=== PATIENT | female | born 1965 | race Caucasian/White ===

== ENCOUNTER 2019-04-06 14:21 | Emergency (ER) | payer MEDICAID, OTHER ==
[~2019-04-06] VITALS: Ht 177.8 cm; Wt 68.0 kg
--- NOTE | 2019-04-06 15:14 | NUR ---
PT WAS EVALUATED BY DR DURBIN. PT WAS D/C'd TO HOME. D/C INSTRUCTIONS GIVEN TO THE PT.
[2019-04-06 15:15] VITALS: BP 135/76
== END 2019-04-06 15:16 | disposition home or self-care (01) ==
LOC: ER 14:21
DX: Z00.00 Encounter for general adult medical examination without abnormal findings (principal)
CPT/HCPCS: A4663

== ENCOUNTER 2019-08-05 17:52 | Emergency (ER) | payer OTHER ==
[~2019-08-05] VITALS: Ht 170.2 cm; Wt 76.7 kg
[2019-08-05] MEDS ORDERED: IBUPROFEN 800 MG TABLET PO ONE (18:15)
[2019-08-05] MEDS ORDERED: IBUPROFEN 800 MG TABLET ONE (18:27)
--- NOTE | 2019-08-05 18:33 | NUR ---
Dr Bellamy is at bedside for MSE.
--- NOTE | 2019-08-05 18:59 | NUR ---
Patient discharged to home in stable conditon. Written and verbal after care instructions given. to patient. Patient verbalizes understanding of instructions.
== END 2019-08-05 19:03 | disposition home or self-care (01) ==
LOC: ER 17:52
DX: S92.515A Nondisplaced fracture of proximal phalanx of left lesser toe(s), initial encounter for closed fracture (principal); W22.8XXA Striking against or struck by other objects, initial encounter; Y93.89 Activity, other specified; Y92.89 Other specified places as the place of occurrence of the external cause; Y99.8 Other external cause status
CPT/HCPCS: 73630; A4663

== ENCOUNTER 2019-12-02 11:15 | Emergency (ER) | payer MEDICAID, OTHER ==
[~2019-12-02] VITALS: Ht 170.2 cm; Wt 70.3 kg
--- NOTE | 2019-12-02 11:20 | NUR ---
PATIENT WAS SEEN BY
--- NOTE | 2019-12-02 11:34 | NUR ---
DC AND FOLLOW UP INSTRUCTIONS GIVEN AND EXPLAINED TO PATIENT WHO STATES SHE UNDERSTANDS ALL INSTRUCTIONS.
== END 2019-12-02 11:34 | disposition home or self-care (01) ==
LOC: ER 11:15
DX: H66.91 Otitis media, unspecified, right ear (principal); H60.91 Unspecified otitis externa, right ear; R21 Rash and other nonspecific skin eruption
CPT/HCPCS: A4663